=== PATIENT | male | born 1950 | race Caucasian/White ===

== ENCOUNTER 2017-07-28 09:35 | Day surgery (SDC) | payer MEDICARE ==
[~2017-07-28 09:35] MED LIST: KETOROLAC TROMETHAMINE 0.45% 4 DROP/0.4 ML DROPERETTE OD PRN; TETRACAINE HCL 0.5% OPH SOLN 0.6 ML DROPERETTE OD PRN
[2017-07-28] MEDS: CYCLOPENTOLATE 0.2%/PHENYLEPHRINE 1% OPH SOLN 2 ML OD PRN ×3 (10:01→10:36)
[2017-07-28] MEDS: TROPICAMIDE 1% OPH SOLN 3 ML OD PRN ×3 (10:01→10:36)
[2017-07-28] MEDS: BESIFLOXACIN HCL 0.6% OPH SUSP 5 ML BOTTLE OD PRN ×3 (10:02→11:08)
[2017-07-28] MEDS: TETRACAINE HCL 0.5% OPH SOLN 2 ML OD PRN ×3 (10:03→10:45)
[2017-07-28] MEDS ORDERED: EPINEPHRINE INJ/PF 1 MG/1 ML AMPULE ONE (10:08)
[2017-07-28] MEDS ORDERED: CHONDR SU A NA/HYALUR INTRAOC KIT (SURGICARE) ONE (10:08)
[2017-07-28] MEDS ORDERED: LIDOCAINE 1% INJ-PF (10 MG/ML) 30 ML SDV ONE (10:08)
[2017-07-28] MEDS ORDERED: FENTANYL CITRATE INJ/PF 100 MCG/2 ML AMPUL ONE (10:28)
[2017-07-28] MEDS ORDERED: MIDAZOLAM 2 MG/2 ML INJ ONE (10:28)
[2017-07-28] MEDS ORDERED: ONDANSETRON HCL INJ/PF 4 MG/2 ML SDV ONE (10:28)
[2017-07-28] MEDS ORDERED: LIDOCAINE 1%/PHENYLEPHRINE 1.5% 1 ML VIAL ONE (12:11)
--- NOTE | 2017-07-28 19:04 | DISCHARGE SUMMARY E ---
Discharge Summary NAME: PEARL TORRES : 1950 AGE: 66Y ADMITTED: 07/28/2017 DISCHARGED: 07/28/2017 HOSPITAL COURSE: This is a 73-lvha-tuu-old patient who underwent cataract extraction of the right eye with ReSTOR IOL. DIAGNOSIS: Cataract, right eye. He underwent surgery because he was having difficulty with glare from headlights making it difficult to drive at night. DISCHARGE INSTRUCTIONS: He is to be on a regular diet. No bending at his waist, no heavy lifting. He is to use his Besivance, Ilevro, and Durezol at 3:00 p.m. and 8:00 p.m., and sleep with a rigid shield. I will see him for a 1 day postoperative tomorrow. DICTATING PHYSICIAN: TRI GILBERT M.D. [id number] PHY#: [id number] ID: [id number] JOB#: [id number] ACCT: [id number] cc:TRI GILBERT M.D. >
--- NOTE | 2017-07-28 19:04 | [facility] OPERATIVE REPORT E ---
[facility] Operative Report NAME: PEARL TORRES AGE: 66Y DATE OF SURGERY: 07/28/2017 ROOM: PREOPERATIVE DIAGNOSIS: CATARACT, RIGHT EYE. POSTOPERATIVE DIAGNOSIS: CATARACT, RIGHT EYE. OPERATION: Cataract extraction with use of a ReSTOR IOL of the right eye. SURGEON: TRI GILBERT M.D. ANESTHESIA: Topical. PROCEDURE: After obtaining appropriate consent, the patient's right eye was prepped and draped in sterile fashion as well as the surgeon in a sterile manner and cataract surgery was started. First a paracentesis blade was used to make a side-port incision. Viscoelastic was used to inflate the anterior chamber. Next a 2.4 mm incision was made with a 2.4 mm blade, clear corneal temporally. A continuous capsulorrhexis was made using a cystotome and Utrata forceps. Following this hydrodissection was carried out to make the lens fully loose and mobile and it was rotated 90 degrees. Following this, a rbboxv-fnc-qfpftga technique was used to phacoemulsify the lens with a CDE of 6.92. The remaining cortex was removed with irrigation/aspiration. Provisc was instilled into the capsular bag to inflate the bag. A [id number], 25.5 diopter lens was placed. The remaining viscoelastic material was removed with irrigation/aspiration. Following this, the incision was found to be watertight. Besivance was instilled into the eye and a protective shield was placed over the eye. The patient returned to the postoperative recovery in stable condition. DICTATING PHYSICIAN: TRI GILBERT M.D. [id number] PHY#: [id number] ID: [id number] JOB#: [id number] ACCT: [id number] cc:TRI GILBERT M.D. >
== END 2017-07-28 11:57 | disposition home or self-care (01) ==
LOC: SC 09:35
PROVIDERS: ATTEND Internal Medicine
DX: H25.13 Age-related nuclear cataract, bilateral (principal); I10 Essential (primary) hypertension; E78.00 Pure hypercholesterolemia, unspecified; F17.210 Nicotine dependence, cigarettes, uncomplicated; K21.9 Gastro-esophageal reflux disease without esophagitis; E11.3212 Type 2 diabetes mellitus with mild nonproliferative diabetic retinopathy with macular edema, left eye; Z79.01 Long term (current) use of anticoagulants; Z79.82 Long term (current) use of aspirin
CPT/HCPCS: 66984; V2788; J2250; J3490 ×2; A9270; J0171; J3010; J2405; J2370; 142

== ENCOUNTER 2017-08-18 09:51 | Day surgery (SDC) | payer MEDICARE ==
[~2017-08-18 09:51] MED LIST changes: +CHONDR SU A NA/HYALUR INTRAOC KIT (SURGICARE) ONE; +EPINEPHRINE INJ/PF 1 MG/1 ML AMPULE ONE; -KETOROLAC TROMETHAMINE 0.45% 4 DROP/0.4 ML DROPERETTE OD PRN; +KETOROLAC TROMETHAMINE 0.45% 4 DROP/0.4 ML DROPERETTE OS PRN; +LIDOCAINE 1% INJ-PF (10 MG/ML) 30 ML SDV ONE; -TETRACAINE HCL 0.5% OPH SOLN 0.6 ML DROPERETTE OD PRN
[2017-08-18] MEDS: BESIFLOXACIN HCL 0.6% OPH SUSP 5 ML BOTTLE OS PRN ×4 (11:00→12:10)
[2017-08-18] MEDS: CYCLOPENTOLATE 0.2%/PHENYLEPHRINE 1% OPH SOLN 2 ML OS PRN ×3 (11:00→11:18)
[2017-08-18] MEDS: TROPICAMIDE 1% OPH SOLN 3 ML OS PRN ×3 (11:00→11:18)
[2017-08-18] MEDS: TETRACAINE HCL 0.5% OPH SOLN 2 ML OS PRN ×3 (11:00→11:37)
[2017-08-18] MEDS ORDERED: FENTANYL CITRATE INJ/PF 100 MCG/2 ML AMPUL ONE (11:42)
[2017-08-18] MEDS ORDERED: MIDAZOLAM 2 MG/2 ML INJ ONE ×2 (11:42→11:54)
[2017-08-18] MEDS ORDERED: LIDOCAINE 1%/PHENYLEPHRINE 1.5% 1 ML VIAL ONE (11:54)
--- NOTE | 2017-08-18 20:00 | [facility] OPERATIVE REPORT E ---
[facility] Operative Report NAME: PEARL TORRES AGE: 66Y DATE OF SURGERY: 08/18/2017 ROOM: PREOPERATIVE DIAGNOSIS: 1. CATARACT, LEFT EYE. . POSTOPERATIVE DIAGNOSIS: 1. CATARACT, LEFT EYE. 2. PUPIL MYOSIS, LEFT EYE. OPERATION: Complex cataract extraction with use of a Malyugin ring due to a myotic pupil and insertion of a ReSTOR IOL of the left eye. SURGEON: TRI GILBERT M.D. ANESTHESIA: Topical. PROCEDURE: After obtaining appropriate consent, the patient's left eye was prepped and draped in sterile fashion as well as the surgeon in a sterile manner and cataract surgery was started. First a paracentesis blade was used to make a side-port incision. Viscoelastic was used to inflate the anterior chamber. Next a 2.4 mm incision was made with a 2.4 mm blade, clear corneal temporally. A continuous capsulorrhexis was made using a cystotome and Utrata forceps. Following this hydrodissection was carried out to make the lens fully loose and mobile and it was rotated 90 degrees. Following this, a tjwrxz-nku-iyvhjmc technique was used to phacoemulsify the lens with a CDE of 7.29. The remaining cortex was removed with irrigation/aspiration. Provisc was instilled into the capsular bag to inflate the bag. A [id number], 26.0 diopter lens was placed. The remaining viscoelastic material was removed with irrigation/aspiration. Following this, the incision was found to be watertight. Besivance was instilled into the eye and a protective shield was placed over the eye. The patient returned to the postoperative recovery in stable condition. Prior to making capsulorrhexis, a Malyugin ring was inserted due to a very myotic pupil of less than 5 mm. This was removed at the end of the case. DICTATING PHYSICIAN: TRI GILBERT M.D. [id number] [id number] PHY#: [id number] ID: [id number] JOB#: [id number] ACCT: [id number] cc:TRI GILBERT M.D. > [facility]
--- NOTE | 2017-08-18 20:00 | DISCHARGE SUMMARY E ---
Discharge Summary NAME: PEARL TORRES : 1950 AGE: 66Y ADMITTED: 08/18/2017 DISCHARGED: 08/18/2017 HOSPITAL COURSE: This is a 66-year-old male who underwent complex cataract extraction of the left eye with use of a Malyugin ring. DIAGNOSIS: 1. Cataract, left eye. 2. Pupil myosis, requiring a Malyugin ring and insertion of a ReSTOR IOL. The patient underwent surgery because he was having difficulty reading road signs and medicine bottles. DISCHARGE INSTRUCTIONS: He is to be on a regular diet. No bending at his waist, no heavy lifting. He should use his Besivance, Ilevro, and Durezol at 3 p.m. and 8 p.m. and sleep with a rigid shield. I will see him for a 1 day postoperative tomorrow. DICTATING PHYSICIAN: TRI GILBERT M.D. [id number] [id number] PHY#: [id number] ID: [id number] JOB#: [id number] ACCT: [id number] cc:TRI GILBERT M.D. >
== END 2017-08-18 12:46 | disposition home or self-care (01) ==
LOC: SC 09:51
PROVIDERS: ATTEND Internal Medicine
DX: H25.13 Age-related nuclear cataract, bilateral (principal); E11.3212 Type 2 diabetes mellitus with mild nonproliferative diabetic retinopathy with macular edema, left eye; H57.03 Miosis; I10 Essential (primary) hypertension; E78.00 Pure hypercholesterolemia, unspecified; K21.9 Gastro-esophageal reflux disease without esophagitis; F17.210 Nicotine dependence, cigarettes, uncomplicated; Z79.82 Long term (current) use of aspirin; Z79.899 Other long term (current) drug therapy; Z79.02 Long term (current) use of antithrombotics/antiplatelets
CPT/HCPCS: 66982; 82962; V2788; J2250; J3490 ×2; A9270; J0171; J3010; J2370; 142